=== PATIENT | male | born 1965 | race Two or more races ===

== ENCOUNTER → 2018-04-30 14:33 | Outpatient (CLI) | payer OTHER, SELFPAY ==
[2018-04-30 14:54] LABS: Pathologist Comment May follow
[2018-04-30 16:57] LABS: AUTO B FLUID DILUENT BKGD CT WBC <0.1 RBC <0.01 (W<.1,R<.01); Appearance /Synovial Fluid Sl hazy (CLEAR); Color / Synovial Fluid Yellow (Pale Yellow); RBC /Synovial Fluid 24 /mm3 (0)
[2018-04-30 16:58] LABS: Synovial Fld Mononuclear WBC # 0.534 10^3/ul; Synovial Fld Mononuclear WBC % 95.4 %; Synovial Fld Polynuclear WBC # 0.026 10^3/ul; Synovial Fld Polynuclear WBC % 4.6 %
[2018-04-30 17:57] LABS: Lymph 49 %; Monocyte /Synovial Fluid 39 %; Neutrophil 6 % (0-25); Other Cell /Synovial Fluid 6 %
[2018-04-30 18:03] LABS: Source- Body Fluid SYNOVIAL
[2018-05-03 13:29] LABS: Pathologist Review Reviewed
== END ==
PROVIDERS: Visit Provider Physician Assistant Surgical
DX: M17.11 Unilateral primary osteoarthritis, right knee (principal)
CPT/HCPCS: 87070; 87075; 87205; 89050; 89051; 89060